=== PATIENT | female | born 1965 | race Caucasian/White ===

== ENCOUNTER 2019-08-27 13:05 | Emergency (ER) | payer OTHER ==
[2019-08-27 13:15] VITALS: BP 152/96; PULSE 95; TEMP 98.1; BMI 27.7
--- NOTE | 2019-08-27 13:27 | PDOC ---
Attending Attestation - Resident Resident Name: Mikhail Powell - HPI HPI: 08/27/19 14:11 patient presents to the ED complaining of R upper back pain that has been intermittent for three days and feels similar to previous episodes of renal stones. Denies urinary complaints, nausea or vomiting or fever. Denies aggravating or alleviating factors. - Physicial Exam PE: 08/27/19 14:17 Agree with resident exam. Patient is alert and oriented and in no acute distress. Abdomen is soft non tender, non distended, without guarding or rebond. No CVA tenderness. - Medical Decision Making 08/27/19 14:22 Pt presents to the ED complaining of R flank pain, consistent with prior episodes of renal stones. Pain is most likely renal stones, but differential includes muscular pain, less likely billiary disease, less likely aCS. Will check labs and CT non contrast and reassess. Discharge - Discharge Information Problems reviewed: Yes Clinical Impression/Diagnosis: Nephrolithiasis Condition: Stable Disposition: HOME - Follow up/Referral Referrals: Doni Hernandez [Primary Care Provider] - Ely Magdaleno MD [Staff Physician] - - Patient Discharge Instructions Patient Printed Discharge Instructions: Kidney Stones -- Adult Additional Instructions: You came to the ED due to right low back pain that radiated to the abdomen, which has been present for [address] scan showed a stone in the right ureter. You should follow up outpatient with a urologist within the next few weeks. Continue to drink plenty of fluids. Return to the ED if pain becomes unbearable, you develop fever, or unable to tolerate drinking fluids due to vomiting. - Post Discharge Activity
--- NOTE | 2019-08-27 13:37 | PDOC ---
History of Present Illness - General Chief Complaint: Back Pain Stated Complaint: RIGHT LOWER BACK PAIN Time Seen by Provider: 08/27/19 13:26 History Source: Patient Exam Limitations: No Limitations - History of Present Illness Initial Comments: Patient is a 53 year old female with history of smoking and no hx/o abdominal surgery presents to the ED with right low back pain that radiates to the abdomen. It started 2 days ago, is constant with occassional worsening of symptoms. She reports nausea when the pain worsens but no vomiting. Pain does not worsen after eating. Denies fever, urinary symptoms, hematuria, diarrhea, constipation, hematochezia, chest pain, or SOB. Past History - Medical History Allergies/Adverse Reactions: Allergies Allergy/AdvReac Type Severity Reaction Status Date / Time No Known Allergies Allergy Verified 08/27/19 13:08 Home Medications: Ambulatory Orders Acetaminophen [Tylenol -] 500 mg PO ONCE 08/27/19 Ibuprofen [Motrin -] 400 mg PO ONCE 08/27/19 COPD: No Disorders: Yes (KIDNEY STONES) - Psycho-Social/Smoking History Smoking History: Current every day smoker Have you smoked in the past 12 months: Yes Number of Cigarettes Smoked Daily: 8 Information on smoking cessation initiated: Yes - Substance Abuse Hx (Audit-C & DAST Scrn) How often the patient has a drink containing alcohol: Never Score: In Men: 4 or > Positive; In Women: 3 or > Positive: 0 Screen Result (Pos requires Nsg. Audit-10AR): Negative In the last yr the pt used illegal drug/Rx for NonMed reason: No Score: Yes response is considered Positive: 0 Screen Result (Positive result requires Nsg. DAST-10): Negative Review of Systems - Review of Systems Able to Perform ROS?: Yes Is the patient limited Belgian proficient: No Constitutional: No: Chills, Fever Respiratory: No: Cough, Shortness of Breath Cardiac (ROS): No: Chest Pain ABD/GI: Yes: Nausea. No: Blood Streaked Bowels, Constipated, Diarrhea, Vomiting : Yes: Flank Pain. No: Burning, Dysuria, Frequency, Hematuria Musculoskeletal: Yes: Back Pain *Physical Exam - Vital Signs Last Vital Signs Temp Pulse Resp BP Pulse Ox 98.1 F 95 H 18 152/96 98 08/27/19 13:05 08/27/19 13:05 08/27/19 13:05 08/27/19 13:05 08/27/19 13:05 - Physical Exam General Appearance: Yes: Nourished, Appropriately Dressed. No: Apparent Distress HEENT: positive: EOMI, Normal Voice Neck: positive: Trachea midline Respiratory/Chest: positive: Lungs Clear, Normal Breath Sounds Cardiovascular: positive: Regular Rhythm, Regular Rate, S1, S2 Gastrointestinal/Abdominal: positive: Normal Bowel Sounds, Soft, Other (Negative conway sign, no tenderness to palpation). negative: Tender, Guarding, Tende rness Musculoskeletal: negative: CVA Tenderness, CVA Tenderness (R), CVA Tenderness (L) ED Treatment Course - LABORATORY CBC & Chemistry Diagram: 08/27/19 14:00 08/27/19 13:59 Medical Decision Making - Medical Decision Making 53 year old female with history of kidney stones, smoking and without history of abdominal surgery presents to the ED for 2 days of low back pain radiating to abdomen that's constant and worsens occasionally. She has occasional nausea without vomiting. Denies fever, urinary symptoms, and hematuria. Will recieve abdomen CT to evaluate for kidney stones. She had no CVA tenderness so unlikely kidney infection. EKG and troponin done to rule out ACS and were unremarkable. Biliary disease possible but unlikely with pain unrelated to eating and negative conway sign. Urine HCG was negative. UA was positive for blood but negative for leukocyte esterase, nitrites, and only a few WBCs. CMP and CBC within normal limits except elevated WBC count of 15.1, however, no evidence of UTI. Abdominal CT demonstrated partially obstructing right ureteral stone with mild hydronephrosis, and is consistent with her presentation that would suggest kidney stone. Patient is otherwise stable, pain is controlled, and tolerating PO. She will be discharged home to follow up with Urology. Discharge - Discharge Information Problems reviewed: Yes Clinical Impression/Diagnosis: Nephrolithiasis Condition: Stable Disposition: HOME - Admission No - Follow up/Referral Referrals: Doni Hernandez [Primary Care Provider] - Ely Magdaleno MD [Staff Physician] - - Patient Discharge Instructions Patient Printed Discharge Instructions: Kidney Stones -- Adult Additional Instructions: You came to the ED due to right low back pain that radiated to the abdomen, which has been present for [address] scan showed a stone in the right ureter. You should follow up outpatient with a urologist within the next few weeks. Continue to drink plenty of fluids. Return to the ED if pain becomes unbearable, you develop fever, or unable to tolerate drinking fluids due to vomi ting. - Post Discharge Activity
[2019-08-27] MEDS ORDERED: IBUPROFEN 600 MG TABLET (FP) PO ONE ×2 (13:59→14:12)
[2019-08-27 14:31] LABS: EPITHELIAL CELLS FEW /hpf
[2019-08-27 15:03] LABS: ALBUMIN 4.4 g/dl (3.4-5.0); BILIRUBIN,TOTAL 0.5 mg/dl (0.2-1); CALCIUM 9.5 mg/dl (8.5-10); CREATININE 1.1 mg/dl (0.55-1.3); POTASSIUM 3.8 mmol/L (3.5-5.1); TOT PROT 7.6 g/dl (6.4-8.2)
[2019-08-27 15:06] LABS: BASO % 0.6 % (0-2.0); EOS % 0.5 % (0-4.5); HEMATOCRIT 39.6 % (32.4-45.2); HEMOGLOBIN 14.1 GM/dl (10.7-15.3); LYMPH % 8.7 % (8-40); MCH 33.7 pg (25.7-33.7); MCHC 35.6 g/dl (32.0-36.0); MEAN CELL VOLUME 94.8 fl (80-96); MEAN PLT VOLUME 9.8 fl (7.5-11.1); MONO % 5.8 % (3.8-10.2); NEUT % 84.4 % (42.8-82.8); PLATELET COUNT 309 K/MM3 (134-434); RBC 4.18 M/mm3 (3.60-5.2); RDW 12.5 % (11.6-15.6); WHITE BLOOD COUNT 15.1 K/mm3 (4.0-10.8)
--- NOTE | 2019-08-28 10:44 | EKG ---
Test Reason : Blood Pressure : / mmHG Vent. Rate : 079 BPM Atrial Rate : 079 BPM P-R Int : 114 ms QRS Dur : 082 ms QT Int : 388 ms P-R-T Axes : 031 030 010 degrees QTc Int : 444 ms NORMAL SINUS RHYTHM NORMAL ECG NO PREVIOUS ECGS AVAILABLE Confirmed by MD Royer, Blayne ([id number]) on 08/28/2019 10:44:10 AM Referred By: Confirmed By:Blayne Linton MD
== END 2019-08-27 15:40 | disposition home or self-care (01) ==
LOC: FER 13:05
DX: N20.0 Calculus of kidney (principal)
CPT/HCPCS: 36415; 74176-TC; 80053; 81003; 81015; 84484; 84703; 85025; 93005; 99284-25

== ENCOUNTER 2020-02-04 06:22 | Day surgery (SDC) | payer OTHER ==
[2020-02-03 11:06] VITALS: BMI 26.7
[2020-02-04] MEDS ORDERED: PROPOFOL 20 ML ONE (12:04)
[2020-02-04] MEDS ORDERED: MIDAZOLAM HCL 2 MG/2 ML SINGLE DOSE VIAL ONE (12:04)
[2020-02-04] MEDS ORDERED: ceFAZolin SODIUM 1 GM VIAL ONE (12:28)
[2020-02-04] MEDS ORDERED: ceFAZolin SODIUM 1 GM VIAL IVPB ONE (12:29)
[2020-02-04 14:24] VITALS: BP 142/88; PULSE 75; TEMP 97.8
== END 2020-02-04 13:45 | disposition home or self-care (01) ==
LOC: JASU-SURG 06:22
PROVIDERS: ATTEND Urology
PROC: 0TF3XZZ Fragmentation in Right Kidney Pelvis, External Approach (ICD-10-PCS; principal; 2020-02-04 11:00)
DX: N20.0 Calculus of kidney (principal)
CPT/HCPCS: 84703

== ENCOUNTER 2021-12-12 11:38 | Emergency (ER) | payer OTHER ==
[2021-12-12 11:51] VITALS: BP 160/99; PULSE 107; RESP 18; TEMP 98.6; BMI 27.3
== END 2021-12-12 12:06 | disposition home or self-care (01) ==
LOC: FER 11:38
DX: L02.214 Cutaneous abscess of groin (principal)
CPT/HCPCS: 99283-25

== ENCOUNTER 2024-04-07 13:04 | Emergency (ER) | payer OTHER ==
[2024-04-07 13:12] VITALS: BP 133/92; PULSE 125; RESP 16; TEMP 99.7; BMI 27.1
== END 2024-04-07 13:55 | disposition home or self-care (01) ==
LOC: FER 13:04
DX: L03.317 Cellulitis of buttock (principal)
CPT/HCPCS: 99283-25